=== PATIENT | female | born 1950 | race Caucasian/White ===

== ENCOUNTER 2016-09-08 13:53 | Inpatient (IN) | payer MEDICARE, OTHER ==
[~2016-09-08 13:53] MED LIST: ADULT LOW DOSE81 M1 PO; ADVIL200 M2 PO; ALPRAZOLAM0.5 M3 PO; AUGMENTIN 500-1 EAC2 PO; AZITHROMYCIN500 M3 PO; BISACODYL5 M1 PO; CARAFATE1 G2 PO; CARVEDILOL25 M1 PO; CARVEDILOL6.25 M1 PO; CIPRO500 M2 PO; CLONIDINE HCL0.1 M2 PO; COLACE100 M1 PO; COMBIVENT RESPIM4 G1 INH; COUGH SYRU100 MG/51 PO; COZAAR50 M1 PO; DULOXETINE HCL30 M1 PO; FEOSOL325 M1 PO; FISH OIL 11000 MG/CA PO; FLAGYL500 M1 PO; FUROSEMIDE20 M1 PO; HYDROXYCHLOROQ200 M2 PO; IMODIUM LIQUID PO; IPRAT-ALBUT 0.5-3 ML IH; LEVAQUIN250 M3 PO; LEVAQUIN750 M1 PO; MACRODANTIN100 M1 PO; MAGNESIUM OXID400 M1 PO; METRONIDAZOLE500 M3 PO; MILK OF MAGNESIA PO; MIRALAX17 G2 PO; NEOMYCIN PO; NICODERM CQ1 EACH TOP; NORCO 5-325 TA1 EACH PO; NORVASC5 M2 PO; NYSTOP60 GM EXT; OMEPRAZOLE20 M3 PO; PERCOCET 5-3251 EACH PO; POTASSIUM20 MEQ/13 PO; PREDNISONE10 M1 PO; PREDNISONE5 M1 PO; PRENATAL-U CAPS1 CAP PO; PRILOSEC OTC20 M1 PO; PRILOSEC20 M1 PO; PROCHLORPERAZIN10 M1 PO; REGLAN10 M2 PO; RISAMINE OINTM113 G1; RISAMINE OINTM113 G1 TOP; STOP HOME MEDICATION; SULFAMETHOXAZO1 EAC5 PO; SYNTHROID100 MC1 PO; SYNTHROID125 MC1 PO; SYNTHROID150 MC1 PO; SYNTHROID75 MC1 PO; TRAMADOL HCL50 M2 PO; TRIAMCINOLONE A15 G4 EXT; TRIAMCINOLONE A15 G4 TP; TYLENOL WITH C1 EACH PO; TYLENOL325 M2 PO; VENTOLIN HFA18 G2 INH; VITAMIN B125000 MCG; VITAMIN D35000 UNI3 PO; ZOCOR20 M1 PO
[2016-09-08] MEDS ORDERED: HYDROCODON-ACE1 EA17 PO (14:16)
[2016-09-08] MEDS ORDERED: IRON325 M3 PO (14:16)
[2016-09-08] MEDS ORDERED: XANAX0.5 M1 PO (14:17)
[2016-09-08] MEDS ORDERED: IPRAT-ALBUT 0.5-3 ML INH (14:17)
[2016-09-08 14:59] LABS: BASO % 0.2 % (0-2); EOS % 0.9 % (0-7); EOSINOPHIL ABSOLUTE COUNT 0.1 tho/cmm (0.0-0.7); HCT-HEMATOCRIT 37.5 % (34.0-49.0); HGB-HEMOGLOBIN 13.1 gm/dl (12.0-15.5); LYMPH % 2.2 % (20-45); LYMPH ABSOLUTE COUNT 0.3 tho/cmm (0.8-4.5); MCHC MEAN CORPUSCULAR HGB CONC 34.9 % (32.0-36.0); MCV (MEAN CELL VOLUME) 88.9 fl (82.0-96.0); MEAN PLATELET VOLUME 9.7 cmc (9.4-12.4); MONO % 8.2 % (0-12); NEUTROPHIL ABSOLUTE COUNT 11.2 tho/cmm (1.6-8.0); NEUTROPHIL-AUTOMATED 11.2 tho/cmm (1.6-8.0); NEUTROPHILS % 88.5 % (40-80); PLATELET COUNT 150 tho/cmm (150-450); RED BLOOD COUNT 4.22 mil/cmm (4.00-5.20); RED CELL DISTRIBUTION WIDTH 13.9 % (12.4-16.4); WHITE BLOOD COUNT 12.6 tho/cmm (4.0-10.0)
[2016-09-08 15:23] LABS: ALB/GLOB RATIO 0.9 (0.8-2.0); ALBUMIN 3.1 g/dl (3.5-5.0); ALKALINE PHOSPHATASE 131 U/L (33-138); ALT/SGPT 28 U/L (12-78); ANION GAP 15 mmol/L (0-20); AST/SGOT 21 U/L (10-40); BILIRUBIN,TOTAL 0.7 mg/dl (0-1.5); BLOOD UREA NITROGEN 30 mg/dl (6-24); CALCIUM 8.5 mg/dl (8.5-10.5); CARBON DIOXIDE-VENOUS 28 mmol/L (22-32); CHLORIDE 92 mmol/l (96-110); CREATININE 2.16 mg/dl (0.50-1.10); POTASSIUM 5.1 mmol/L (3.7-5.1); SODIUM 130 mmol/L (135-145); eGFR VALUE FOR BLACK 27 mL/Min
[2016-09-08 15:26] LABS: GLUCOSE 62 mg/dL (70-110)
[2016-09-08 15:34] LABS: PROCALCITONIN 0.59 ng/ml (0.05-0.09)
[2016-09-08 16:06] LABS: URINE APPEARANCE CLOUDY; URINE BILIRUBIN NEGATIVE (NEG); URINE BLOOD LARGE (NEG); URINE COLOR DARK YELLOW; URINE GLUCOSE (UA) NEGATIVE (NEG); URINE KETONE SMALL (NEG); URINE LEUKOCYTE ESTERASE POSITIVE (NEG); URINE NITRITE POSITIVE (NEG); URINE PROTEIN MODERATE (NEG)
[2016-09-08 16:18] LABS: URINE BACTERIA 3+; URINE EPITHELIAL CELLS 0-1 /[HPF] (0-10); URINE WBC 55-60 /[HPF] (0-5)
--- NOTE | 2016-09-08 21:35 | NUR ---
[facility]N ROUNDING-WENT TO ADMIT PATIENT AND NURSE HAD ALREADY DONE BUT SPOKE WITH PATIENT. DOING OK BUT TIRED SO ROOM TEMP GOT TURNED UP.
[2016-09-09 05:15] LABS: HCT-HEMATOCRIT 35.2 % (34.0-49.0); IMMATURE GRANULOCYTES ABSOLUTE 0.01 tho/cmm (0-0.03); IMMATURE GRANULOCYTES PERCENT 0.1 % (0-0.3); LYMPH % 2.6 % (20-45); LYMPH ABSOLUTE COUNT 0.3 tho/cmm (0.8-4.5); MCHC MEAN CORPUSCULAR HGB CONC 34.1 % (32.0-36.0); MEAN PLATELET VOLUME 9.9 cmc (9.4-12.4); MONO % 2.3 % (0-12); MONOCYTE ABSOLUTE COUNT 0.2 tho/cmm (0.0-1.2); NEUTROPHIL ABSOLUTE COUNT 9.3 tho/cmm (1.6-8.0); NEUTROPHIL-AUTOMATED 9.3 tho/cmm (1.6-8.0); PLATELET COUNT 139 tho/cmm (150-450); RED CELL DISTRIBUTION WIDTH 13.7 % (12.4-16.4); WHITE BLOOD COUNT 9.8 tho/cmm (4.0-10.0)
[2016-09-09 05:30] LABS: ANION GAP 12 mmol/L (0-20); BLOOD UREA NITROGEN 36 mg/dl (6-24); C-REACTIVE PROTEIN 14.2 mg/dl (0-0.9); CALCIUM 7.5 mg/dl (8.5-10.5); CARBON DIOXIDE-VENOUS 27 mmol/L (22-32); CHLORIDE 97 mmol/l (96-110); CREATININE 2.36 mg/dl (0.50-1.10); POTASSIUM 4.9 mmol/L (3.7-5.1); SODIUM 131 mmol/L (135-145); eGFR VALUE FOR BLACK 24 mL/Min
[2016-09-09 05:34] LABS: TSH-THYROID STIMULATING HORM. 1.39 uIU/ml (0.40-3.80)
[2016-09-09 05:36] LABS: GLUCOSE 153 mg/dL (70-110)
--- NOTE | 2016-09-09 13:20 | NUR ---
[facility] NOTE-VISITED WITH PT AT THIS TIME. SHE IS RESTING IN BED, STATES SHE IS HAVING SOME UNCOMFORTABLE PAIN. REQUESTING PAIN MEDICATIONS, PAGED HER RN TO GIVE HER SOMETHING WHEN SHE'S ABLE. EXPLAINED ID CONSULT TO PT, WELL HER CARE AND DISCHARGE PLAN. SHE IS IN AGREEMENT WITH THE CURRENT PLAN FOR DR ABREU CONSULT. SHE HAS NO FURTHER QUESTIONS OR NEEDS. WILL CONTINUE TO MONITOR.
--- NOTE | 2016-09-09 19:02 | NUR ---
1745- PT STATES SHE IS SHORT OF BREATH. RESPIRATORY PAGED FOR TREATMENT. DR Denny PAGED. [employer] DISASTER RECOVERY IN ROOM, SEE VITALS. PT 100% ON 2L02, RESPS 28. PT SITTING UP ON EDGE OF BED FEELS "A LITTLE BETTER". DISCUSSED REPAGING DR Denny AT 1845 IF HAVE NOT HEARD FROM HIM.
--- NOTE | 2016-09-10 19:51 | NUR ---
[facility] NOTE: PT. IN BED, STATES IS ACHY ALL OVER. EDUCATION REVIEWED REGARDING IF THE PT. KNEW REASONING SHE IS WEARING A YELLOW BAND. SHE WASN'T FORSURE, BUT REMINDED THAT SHE WAS TO CALL FOR HELP AND WAIT FOR STAFF TO COME BEFORE GETTING UP SO SHE DOESN'T BET INJURED. RN ON UNIT PAGED FOR PAIN MEDS. INSTRUCTED THE PT. TO CALL FOR FUTURE NEEDS STATES VERBAL AGREEMENT.
[2016-09-11 05:48] LABS: BASO % 0.1 % (0-2); HCT-HEMATOCRIT 43.7 % (34.0-49.0); IMMATURE GRANULOCYTES ABSOLUTE 0.04 tho/cmm (0-0.03); IMMATURE GRANULOCYTES PERCENT 0.3 % (0-0.3); LYMPH % 5.5 % (20-45); LYMPH ABSOLUTE COUNT 0.8 tho/cmm (0.8-4.5); MCH (MEAN CORPUSCULAR HGB) 30.1 pg (28.0-32.0); MCHC MEAN CORPUSCULAR HGB CONC 34.3 % (32.0-36.0); MCV (MEAN CELL VOLUME) 87.6 fl (82.0-96.0); MEAN PLATELET VOLUME 9.4 cmc (9.4-12.4); MONOCYTE ABSOLUTE COUNT 1.3 tho/cmm (0.0-1.2); NEUTROPHIL ABSOLUTE COUNT 12.4 tho/cmm (1.6-8.0); NEUTROPHIL-AUTOMATED 12.4 tho/cmm (1.6-8.0); NEUTROPHILS % 85.1 % (40-80); RED BLOOD COUNT 4.99 mil/cmm (4.00-5.20); RED CELL DISTRIBUTION WIDTH 13.8 % (12.4-16.4); WHITE BLOOD COUNT 14.6 tho/cmm (4.0-10.0)
[2016-09-11 06:00] LABS: ANION GAP 11 mmol/L (0-20); BLOOD UREA NITROGEN 45 mg/dl (6-24); C-REACTIVE PROTEIN 3.7 mg/dl (0-0.9); CALCIUM 7.9 mg/dl (8.5-10.5); CARBON DIOXIDE-VENOUS 29 mmol/L (22-32); CHLORIDE 94 mmol/l (96-110); CREATININE 1.92 mg/dl (0.50-1.10); GLUCOSE 118 mg/dL (70-110); POTASSIUM 5.5 mmol/L (3.7-5.1); SODIUM 128 mmol/L (135-145); eGFR VALUE FOR BLACK 31 mL/Min
[2016-09-11 06:04] LABS: PLATELET COUNT 226 tho/cmm (150-450)
[2016-09-11] MEDS ORDERED: CEFTRIAXON1000 MG/VI IV (13:51)
--- NOTE | 2016-09-11 15:45 | NUR ---
VIRTUAL CARE NOTE: PT DRESSING SITTING ON BED, ANIYAH AT BEDSIDE. PT IS READY FOR DISCHARGE INSTRUCTIONS. INFORMATION GIVEN TO PT, PT DENIES QUESTIONS OR CONCERNS. PT WILL BE DISCHARGED HOME WITH [facility] AND HOME INFUSION. PICC LINE WILL STAY IN AT DISCHARGE. INFORMED FLOOR NURSE DISCHARGE TEACHING ALL DONE, PT CAN GO ONCE IV INFUSION COMPLETED.
[2016-09-28] MEDS ORDERED: BACTRIM DS TAB1 EAC2 PO (10:27)
[2016-09-28] MEDS ORDERED: TYLENOL WITH C1 EACH PO (10:27)
[2016-10-15] MEDS ORDERED: [UNRECOGNIZED DRUG - REMARK] (12:45)
[2016-10-15] MEDS ORDERED: NYSTATIN15 G1 TP (12:46)
[2016-10-15] MEDS ORDERED: VANCOMYCIN125 MG/2.1 PO (12:46)
[2016-10-15] MEDS ORDERED: ISOSORBIDE MONO60 M3 PO (12:48)
[2016-10-15] MEDS ORDERED: [UNRECOGNIZED DRUG - REMARK] (12:50)
[2016-10-15] MEDS ORDERED: [UNRECOGNIZED DRUG - REMARK] (12:50)
[2016-10-15] MEDS ORDERED: ATIVAN0.5 M1 SL (12:51)
[2016-10-15] MEDS ORDERED: MORPHINE SULFATE PO (12:52)
[2016-10-15] MEDS ORDERED: [UNRECOGNIZED DRUG - REMARK] (12:59)
[2016-10-15] MEDS ORDERED: [UNRECOGNIZED DRUG - REMARK] (12:59)
[2016-10-15] MEDS ORDERED: [UNRECOGNIZED DRUG - REMARK] (12:59)
[2016-10-15] MEDS ORDERED: [UNRECOGNIZED DRUG - REMARK] (13:04)
[2016-10-15] MEDS ORDERED: [UNRECOGNIZED DRUG - REMARK] (13:07)
[2016-10-15] MEDS ORDERED: [UNRECOGNIZED DRUG - REMARK] (13:08)
== END 2016-09-11 16:35 | disposition home health service (06) | DRG 872 ==
LOC: EDMED 13:53 → EMR2 17:42 → 5WD 20:00
PROVIDERS: Emergency Medicine; Family Medicine; ADMIT Family Medicine
PROC: 5A09357 Assistance with Respiratory Ventilation, Less than 24 Consecutive Hours, Continuous Positive Airway Pressure (ICD-10-PCS; 2016-09-08)
PROC: 02HV33Z Insertion of Infusion Device into Superior Vena Cava, Percutaneous Approach (ICD-10-PCS; principal; 2016-09-10)
DX: A41.51 Sepsis due to Escherichia coli [E. coli] (principal); N17.9 Acute kidney failure, unspecified; M32.9 Systemic lupus erythematosus, unspecified; E87.1 Hypo-osmolality and hyponatremia; E87.5 Hyperkalemia; J44.9 Chronic obstructive pulmonary disease, unspecified; F50.89 Other specified eating disorder; N10 Acute pyelonephritis; N39.0 Urinary tract infection, site not specified; B96.20 Unspecified Escherichia coli [E. coli] as the cause of diseases classified elsewhere; E03.9 Hypothyroidism, unspecified; F17.210 Nicotine dependence, cigarettes, uncomplicated; I10 Essential (primary) hypertension; E78.5 Hyperlipidemia, unspecified; R22.40 Localized swelling, mass and lump, unspecified lower limb; Z79.899 Other long term (current) drug therapy; Z88.8 Allergy status to other drugs, medicaments and biological substances; Z91.040 Latex allergy status; M79.7 Fibromyalgia; K21.9 Gastro-esophageal reflux disease without esophagitis; K58.9 Irritable bowel syndrome, unspecified; G47.33 Obstructive sleep apnea (adult) (pediatric); I25.10 Atherosclerotic heart disease of native coronary artery without angina pectoris; I25.2 Old myocardial infarction; F41.9 Anxiety disorder, unspecified; E16.2 Hypoglycemia, unspecified
CPT/HCPCS: C1751; C8929; J0696; J1650; J1815; J1940; J1956; J2930; J7030